=== PATIENT | male | born 1965 | race Caucasian/White ===

== ENCOUNTER → 2020-08-08 | Outpatient (REF) ==
--- NOTE | 2020-08-08 16:20 | Diagnostic Imaging Report ---
EXAMINATION: Chest 1 view HISTORY: MEDICAL SURVEILLANCE COMPARISON: None available. FINDINGS: Heart size and pulmonary vasculature are normal. The lungs are clear without consolidation, pleural effusion, or pneumothorax. The osseous structures are intact. IMPRESSION: 1. No acute radiographic abnormality in the chest. Dictated by: Dictated on workstation # [id number]
== END ==
LOC: OCC 15:52
PROVIDERS: ATTEND Nurse Practitioner Family
DX: Z00.00 Encounter for general adult medical examination without abnormal findings (principal)
CPT/HCPCS: 71045

== ENCOUNTER 2023-01-20 21:46 | Emergency (ER) | payer BC ==
[~2023-01-20] VITALS: Ht 182.8 cm; Wt 122.5 kg
--- NOTE | 2023-01-20 22:02 | ED Upper Extremity ---
General Stated Complaint: R ARM SWELLING History of Present Illness Date Seen by Provider: Jan 20, 2023 Time Seen by Provider: 21:52 Initial Comments 57-year-old male is here with right forearm and wrist redness and swelling which has been going on for the past 4 to 5 days. It began with a small ulcerated wound which became bigger and tender abscess and has been draining reddish-white fluid. Swelling extends up his forearm up to his elbow. Denies fever and chills, trauma, injury, nausea and vomiting. Patient is unsure about spider bite or not. Allergies and Home Medications Patient Home Medication List Home Medication List Reviewed: Yes Review of Systems Constitutional: no symptoms reported Skin: see HPI Physical Exam Vital Signs Capillary Refill : Height, Weight, BMI Height: '" Weight: lbs. oz. kg; BMI Method: General Appearance: WD/WN, no apparent distress HEENT: PERRL/EOMI Elbow/Forearm: Right (Right wrist, ulnar side shows a small ulceration most likely from a spider bite Christianson Bharat small abscess formation draining serosanguineous fluid. Surrounding area is erythematous and warm to touch and streaking is extending up to the antecubital fossa.), soft tissue tenderness, sw elling Wrist: Yes soft tissue tenderness (Right wrist, ulnar side shows a small ulceration most likely from a spider bite Christianson Bharat small abscess formation draining serosanguineous fluid. Surrounding area is erythematous and warm to touch and streaking is extending up to the antecubital fossa.) Neurologic/Psychiatric: oriented x 3 Progress/Results/Core Measures Progress Progress Note : Progress Note . RIGHT UPPER EXTREMITY CELLULITIS: - CBC: - CMP: - Wound culture sent - Ceftriaxone 1gm im STAT, AUgmentin 875mg STAT in ER - Prescription given for Augmentin 875mg bid for 10 days - Follow up with PCP in 7 days - Pt did not want to be admitted to observation for iv antibiotics. Advised pt, if skin infection and streaking worsens, must go to the ER for further management -The patient was seen in the ED, and treated appropriately to presentation at a specific point in time. Patient is informed that there is a possibility that disease and illness can evolve and change in acuity rapidly or slowly after patient is discharged from the ER. Precautionary advice given to the patient for immediate return to ER if symptoms worsen or do not resolve, and to seek emergency care sooner rather than later. Pt also advised on the importance of PCP follow up and compliance with management and follow up plan with PCP and/or specialist, as this is part of the management plan. Pt verbally expressed understanding. Departure Impression Primary Impression: Cellulitis of right upper extremity Disposition: 01 HOME, SELF-CARE Condition: Stable Departure-Patient Inst. Referrals: NO,LOCAL PHYSICIAN (PCP/Family) Primary Care Physician Patient Instructions: Cellulitis (Skin Infection), Adult (DC) Add. Discharge Instructions: - Prescription given for Augmentin 875mg bid for 10 days - Follow up with PCP in 7 days - Advised pt to go to the ER for further management if skin infection and st reaking worsens Scripts Amoxicillin/Potassium Clav (Amox Tr-K Clv 875-125 mg Tab) 875 Mg-125 Mg Tablet 1 EACH PO BID for 10 Days, #20 TAB Prov: RAKESH CHANDRA MD 01/20/23 RAKESH CHANDRA MD Jan 20, 2023 22:02
[2023-01-20] MEDS ORDERED: AMOXICILLIN/Clavulanate 875 MG TABLET PO STA (22:10)
[2023-01-20 22:21] LABS: BASOPHILS % (AUTO) 0 % (0-10); EOSINOPHILS # (AUTO) 0.4 10^3/uL (0.0-0.3); EOSINOPHILS % (AUTO) 4 % (0-10); HEMATOCRIT 44 % (40-54); HEMOGLOBIN 15.4 g/dL (13.3-17.7); LYMPHOCYTES # (AUTO) 1.9 10^3/uL (1.0-4.0); LYMPHOCYTES % (AUTO) 21 % (12-44); MEAN CORPUSCULAR HEMOGLOBIN 32 pg (25-34); MEAN CORPUSCULAR HGB CONC 35 g/dL (32-36); MEAN CORPUSCULAR VOLUME 91 fL (80-99); MEAN PLATELET VOLUME 10.9 fL (9.0-12.2); MONOCYTES # (AUTO) 0.9 10^3/uL (0.0-1.0); MONOCYTES % (AUTO) 10 % (0-12); NEUTROPHILS # (AUTO) 5.9 10^3/uL (1.8-7.8); NEUTROPHILS % (AUTO) 65 % (42-75); PLATELET COUNT 149 10^3/uL (130-400)
[2023-01-20] MEDS ORDERED: AMOX1TAB12 PO (22:25)
[2023-01-20] MEDS ORDERED: cefTRIAXone 1,000 MG VIAL IV/IM IM ONE (22:30)
[2023-01-20] MEDS ORDERED: LIDOCAINE 1% INJ 20 ML VIAL ONE (22:40)
[2023-01-20 22:43] LABS: BILIRUBIN,TOTAL 0.4 MG/DL (0.1-1.0); CALCIUM 8.9 MG/DL (8.5-10.1); CREATININE SERUM 1.12 MG/DL (0.60-1.30); POTASSIUM 3.7 MMOL/L (3.6-5.0)
[2023-01-20 22:44] LABS: ALBUMIN 4.5 GM/DL (3.2-4.5); TOTAL PROTEIN 7.5 GM/DL (6.4-8.2)
[2023-01-20] MEDS ORDERED: LIDOCAINE 1% INJ 20 ML VIAL INJ ONE (22:45)
[2023-01-20 22:55] VITALS: BP 158/102
== END 2023-01-20 22:55 | disposition home or self-care (01) ==
LOC: EDUNIT# 21:46 → ER FS 21:48
DX: L03.113 Cellulitis of right upper limb (principal)
CPT/HCPCS: 36415; 80053; 85025; 87070; 87077; 87205